=== PATIENT | male | born 1990 | race Caucasian/White ===

== ENCOUNTER 2019-03-02 22:59 | Inpatient (IN) | payer MEDICAID ==
[~2019-03-02] VITALS: Ht 165.1 cm; Wt 57.2 kg
[2019-03-02] MEDS ORDERED: DECADRON0.5 MG PO (23:09)
[2019-03-02] MEDS ORDERED: SYNTHROID175 MCG PO (23:10)
[2019-03-02 23:56] LABS: ANION GAP 14.6 mmol/L (8-16); CALCIUM 9.5 mg/dL (8.5-10.1); CARBON DIOXIDE 26.2 mmol/L (21.0-32.0); CREATININE - SERUM 1.4 mg/dL (0.6-1.3); POTASSIUM - SERUM 4.8 mmol/L (3.5-5.1)
[2019-03-03 00:01] LABS: ALBUMIN 4.4 g/dL (3.4-5.0); BILIRUBIN - TOTAL 0.31 mg/dL (0.2-1.3); PROTEIN - SERUM 8.3 g/dL (6.4-8.2)
[2019-03-03 00:17] LABS: BASOPHILS 0.5 % (0-2); EOSINOPHILS 1.9 % (0-7); HEMATOCRIT 42.7 % (42.0-54.0); HEMOGLOBIN 15.4 g/dL (13.5-17.5); IMMATURE GRANULOCYTES 0.2 % (0-5); LYMPHOCYTES 19.8 % (15-50); MCH 30.6 pg (26.0-34.0); MCHC 36.1 g/dL (31.0-37.0); MCV 84.9 fL (80.0-100.0); MEAN PLATELET VOLUME 11.4 fL (7.4-10.4); MONOCYTES 6.7 % (2-11); NEUTROPHILS 70.9 % (40-80); PLATELET COUNT 306 10x3/uL (130-400); RBC 5.03 10x6/uL (4.20-6.10); RDW 11.9 % (11.5-14.5); WBC 10.9 10x3/uL (4.8-10.8)
--- NOTE | 2019-03-03 00:47 | NUR ---
PT GIVEN WATER TO DRINK, DENIES ANY FURTHER NEEDS AT THIS TIME. WILL CONTINUE TO MONITOR.
--- NOTE | 2019-03-03 01:12 | NUR ---
PT GIVEN WARM BLANKETS AND HEAD OF BED ADJUSTED FOR COMFORT, DENIES ANY FURTHER NEEDS AT THIS TIME. CALL LIGHT WITHIN REACH. WILL CONTINUE TO MONITOR.
--- NOTE | 2019-03-03 02:20 | NUR ---
RECEIVED PT FROM ER VIA W/C. PT DROWSY, LETHARGIC AND WEAK. ACCOMPANIED BY MOTHER AND FIANCE. MOTHER ANSWERED QUESTIONS. RESP SHALLOW, NONLABORED. BBS CTA. ABD SOFT, NONTENDER. BS HYPERACTIVE X4 QUADS. NS @ 100 MLHR INFUSING IN RT AC WITHOUT DIFF. NO TELEMETRY AVAILABLE AT THIS TIME. ENCOURAGED USE OF URINAL. SR ELEVATED X3. CL IN REACH. V/S STABLE.
[2019-03-03] MEDS ORDERED: FLORINEF 0.1 M0.1 MG PO (02:32)
[2019-03-03 02:53] VITALS: BP 91/59; BMI 21.0
[2019-03-03 04:00] VITALS: BP 83/42
[2019-03-03 08:46] VITALS: BP 123/60
[2019-03-03 09:31] LABS: BASOPHILS 0.2 % (0-2); EOSINOPHILS 0.2 % (0-7); HEMOGLOBIN 13.5 g/dL (13.5-17.5); IMMATURE GRANULOCYTES 0.2 % (0-5); LYMPHOCYTES 20.3 % (15-50); MCH 30.7 pg (26.0-34.0); MCHC 35.5 g/dL (31.0-37.0); MCV 86.4 fL (80.0-100.0); MEAN PLATELET VOLUME 10.4 fL (7.4-10.4); MONOCYTES 2.2 % (2-11); NEUTROPHILS 76.9 % (40-80); PLATELET COUNT 322 10x3/uL (130-400); RDW 11.8 % (11.5-14.5)
[2019-03-03 10:14] LABS: MAGNESIUM - SERUM 1.5 mg/dL (1.8-2.4); PHOSPHOROUS 5.1 mg/dL (2.5-4.9)
--- NOTE | 2019-03-03 11:45 | NUR ---
PT WAS BLADDER SCAN AT THIS TIME WITH RESULTS OF 286 ML NOTED. REC'D ORDERS FOR TO PLACE A VERAS CATH IS GREATER THAN 150 ML. PT IS REFUSING VERAS CATH. CALL WAS PLACED TO PSYCHOLOGY LECTURER. C/L IN REACH AT BEDSIDE.
[2019-03-03 12:38] VITALS: BP 101/59
[2019-03-03 12:51] VITALS: Ht 165.1 cm; Wt 57.2 kg
[2019-03-03 13:03] LABS: APPEARANCE CLEAR (CLEAR); BILIRUBIN NEGATIVE (NEGATIVE); COLOR YELLOW (YELLOW); GLUCOSE 250 mg/dL (NEGATIVE); KETONE LARGE mg/dL (NEGATIVE); NITRITE NEGATIVE (NEGATIVE); PROTEIN NEGATIVE (NEGATIVE); UROBILINOGEN NORMAL (NORMAL)
[2019-03-03 13:11] LABS: UDS - AMPHET NEGATIVE QUAL (NEGATIVE); UDS - BARB POSITIVE QUAL (NEGATIVE); UDS - BENZO NEGATIVE QUAL (NEGATIVE); UDS - COCAINE NEGATIVE QUAL (NEGATIVE); UDS - OPIATE NEGATIVE QUAL (NEGATIVE); UDS - PCP NEGATIVE QUAL (NEGATIVE); UDS - THC NEGATIVE QUAL (NEGATIVE)
[2019-03-03 16:49] LABS: CALC OSMOLALITY 266 mosm/kg (275-300); CALCIUM 8.4 mg/dL (8.5-10.1); CARBON DIOXIDE 20.4 mmol/L (21.0-32.0); CHLORIDE - SERUM 100 mmol/L (98-107); CREATININE - SERUM 1.1 mg/dL (0.6-1.3); GLUCOSE 174 mg/dL (74-106); SODIUM 131 mmol/L (136-145); UREA NITROGEN 13 mg/dL (7-18); eGFR NON AFRICAN AMERICAN 86 mL/min (90-120)
--- NOTE | 2019-03-03 19:30 | NUR ---
SITTING UP IN BED TALKING TO FAMILY AND FIANCE. ALERT AND ORIENTED X4. LAUGHING. STATES HES FEELING BETTER. NO N/V. RESP EVEN AND NONLABORED. DENIES PAIN. AMBULATORY. NS @ 100 MLHR INFUSING IN RT AC WITHOUT DIFF. NO DISTRESS. CL IN REACH.
[2019-03-03 20:00] VITALS: BP 97/47
--- NOTE | 2019-03-03 21:00 | NUR ---
PTS MOTHER STATES PT SAT UP ON SIDE OF BED AND SAW "BLACK SPOTS". B/P IS SLIGHTLY LOW. ENCOURAGED TO RISE SLOWLY FROM LYING AND SITTING POSITION. B/P IS 90/60 AT THIS TIME. MOTHER STATES HES BEEN HAVING THESE EPISODES. NO DISTRESS. PT LAUGHING AND TALKING. CL IN REACH.
[2019-03-04] VITALS: BP 110/50
[2019-03-04 04:00] VITALS: BP 91/49
--- NOTE | 2019-03-04 07:15 | NUR ---
ALERT AND ORIENTED. LUNGS CLEAR BILTERALLY. HEART SOUNDS S1 AND S2 HEARD IN ALL SHER. BOWEL SOUNDS ACTIVE X 4. SKIN INTACT WITHOUT REDNESS. IV TO RIGHT AC PATENT WITHOUT REDNESS. DENIES PAIN. DENIES NEEDS. FIANCE AT BEDSIDE. BED LOW. CALL BESS AND PERSONAL ITEMS IN REACH. WILL CONTINUE TO MONITOR.
[2019-03-04 07:34] LABS: HEMATOCRIT 33.6 % (42.0-54.0); HEMOGLOBIN 12.4 g/dL (13.5-17.5); LYMPHOCYTES 15.8 % (15-50); MCH 32.2 pg (26.0-34.0); MCHC 36.9 g/dL (31.0-37.0); MCV 87.3 fL (80.0-100.0); MEAN PLATELET VOLUME 11.2 fL (7.4-10.4); NEUTROPHILS 77.6 % (40-80); PLATELET COUNT 227 10x3/uL (130-400); RBC 3.85 10x6/uL (4.20-6.10); RDW 12.4 % (11.5-14.5)
[2019-03-04 07:43] LABS: ALBUMIN 3.4 g/dL (3.4-5.0); ALKALINE PHOSPHATASE 43 U/L (46-116); CALCIUM 8.5 mg/dL (8.5-10.1); CARBON DIOXIDE 23.3 mmol/L (21.0-32.0); CHLORIDE - SERUM 101 mmol/L (98-107); PROTEIN - SERUM 6.8 g/dL (6.4-8.2); SODIUM 135 mmol/L (136-145); UREA NITROGEN 10 mg/dL (7-18); eGFR NON AFRICAN AMERICAN > 90 mL/min (90-120)
[2019-03-04 07:45] LABS: ALT (SGPT) 22 U/L (10-68); CALC OSMOLALITY 269 mosm/kg (275-300); GLUCOSE 124 mg/dL (74-106); MAGNESIUM - SERUM 1.9 mg/dL (1.8-2.4); PHOSPHOROUS 3.1 mg/dL (2.5-4.9); POTASSIUM - SERUM 4.2 mmol/L (3.5-5.1)
[2019-03-04 08:30] VITALS: BP 99/51
--- NOTE | 2019-03-04 10:28 | NUR ---
RESTING IN BED. DENIES NEEDS. WILL CONTINUE TO MONITOR.
--- NOTE | 2019-03-04 12:20 | NUR ---
REQUESTED AND GIVEN APPLE JUICE. DENIES NEEDS. MOM AND FIANCE AT BEDSIDE. WILL CONTINUE TO MONITOR.
[2019-03-04 12:53] VITALS: BP 102/61
--- NOTE | 2019-03-04 15:09 | MORECARE ---
CASE MANAGEMENT DISCHARGE SUMMARY PATIENT: DESMOND COTTON UNIT: [id number] ADM DATE: 03/03/19 AGE: 28 : 92 SEX: M ROOM/BED: D.2213 AUTHOR: CANDELARIO PRETTY PHYSICIAN: REFERRING PHYSICIAN: CAROL ST MD DATE OF SERVICE: 03/04/19 Discharge Plan Patient Name: DESMOND COTTON Facility: [facility]:[place] : 1990 Planned Disposition: Home Anticipated Discharge Date: Discharge Date: Expected LOS: Initial Reviewer: [email or web address] Initial Review Date: 03/04/2019 Generated: 03/04/19 4:09 pm Comments DCP- Discharge Planning Updated by [email or web address]: Mita Florence on 03/04/19 2:[address] Patient Name: DESMOND COTTON Admission Status: ER Accout number: [id number] Admission Date: 03-03-2019 : 1990 Admission Diagnosis: Attending: CAROL YARBROUGH Current LOS: 1 Anticipated DC Date: Planned Disposition: Home Primary Insurance: MEDICAID [place] Discharge Planning Comments: CM MET WITH PATIENT TO DISCUSS DC PLANNING/NEEDS AFTER OBTAINING VERBAL CONSENT. PLANS TO DC TO HOME, HOPEFULLY TOMORROW. DENIES NEEDS FOR EQUIPMENT, HOME HEALTH OR REHAB. CM TO FOLLOW AND ASSIST NEEDED. Computer Engineering Technologist: Mita Florence DCPIA - Discharge Planning Initial Assessment Updated by [email or web address]: Mita Florence on 03/04/19 3:08 pm * Is the patient Alert and Oriented? Yes * PCP LUIS M * Pharmacy [facility] * Preadmission Environment Home with Family * ADLs Independent * Additional services required to return to the preadmission environment? No * Can the patient safely return to the preadmission environment? Yes * Has this patient been hospitalized within the prior 30 days at any hospital? No Patient Name: DESMOND COTTON Page [id number] at 1509 All edits/amendments must be made on the electronic document DICTATION DATE: 03/04/19 1508 PRICE ACCURACY SUPERVISOR: OMARI 03/04/19 150 RPT#: [id number] [place] DATE: STATUS: ADM IN [facility] [address] [place] [address] END OF REPORT
--- NOTE | 2019-03-04 15:56 | NUR ---
FLUIDS DC PER RENAL MD.
--- NOTE | 2019-03-04 16:33 | NUR ---
RESTING IN BED. DENIES NEEDS. WILL CONTINUE TO MONITOR.
--- NOTE | 2019-03-04 17:32 | NUR ---
PATIENT GRANDMA BROUGHT PATIENT FRIES, CHICKEN, AND KETCHUP. INFORMED PATIENT IS RENAL DIET. STATES "THE DOCTOR SAID HE COULD HAVE IT." EDUCATION PROVIDED. TAKEN TO PATIENT BY GRANDMA AND EATING ANYWAY.
--- NOTE | 2019-03-04 18:12 | NUR ---
EDUCATION PROVIDED TO PATIENT AND GRANDMA AT BEDSIDE ON RENAL DIET. BOTH VERBALIZED UNDERSTANDING. PATIENT REQUESTED AND GIVEN WARM BLANKET.
--- NOTE | 2019-03-04 18:33 | NUR ---
RESTING IN BED. DENIES NEEDS. GRANDMA AT BEDSIDE. BED LOW. CALL BESS AND PERSONAL ITEMS IN REACH.
--- NOTE | 2019-03-04 19:15 | NUR ---
BEDSIDE REPORT RECEIVED FROM A[facility]A. PATIENT IN ROOM. SEVERAL FAMILY MEMBERS IN ROOM. MOTHER ASKING ABOUT LOW SODIUM/RENAL DIET. PROVIDED EDUCATION. PATIENT DENIES NEEDS AT THIS TIME. CALL LIGHT IN REACH. CPOC.
[2019-03-04 20:00] VITALS: BP 114/51
--- NOTE | 2019-03-04 20:26 | NUR ---
ADMINISTERED MEDICATION TO RIGHT AC ORDERED. PATIENT DENIES PAIN OR DISCOMFORT. LUNGS CLEAR BILATERALLY TO AUSCULTATION. PATIENT REPORTS NO NEW WEAKNESS OR STOMACH DISCOMFORT. BOWEL SOUNDS ACTIVE. FAMILY REMAINS AT BEDSIDE. CALL LIGHT IN REACH. CPOC.
[2019-03-05] VITALS: BP 130/61
--- NOTE | 2019-03-05 03:49 | NUR ---
I have reviewed this patient and I concur with the Shift Assessment completed by the Licensed Practical Nurse today this shift.
[2019-03-05 04:00] VITALS: BP 102/45
--- NOTE | 2019-03-05 07:30 | NUR ---
PATIENT REPORT RECIEVED. PATIENT SITTING UP IN BED WITH IV INTACT. NO COMPLAINTS OR SIGNS OF DISTRESS. CALL LIGHT WITHIN REACH.
[2019-03-05 07:59] LABS: BASOPHILS 0.1 % (0-2); EOSINOPHILS 0.1 % (0-7); HEMATOCRIT 34.2 % (42.0-54.0); HEMOGLOBIN 11.6 g/dL (13.5-17.5); IMMATURE GRANULOCYTES 0.2 % (0-5); LYMPHOCYTES 18.4 % (15-50); MCH 30.4 pg (26.0-34.0); MCHC 33.9 g/dL (31.0-37.0); MEAN PLATELET VOLUME 11.3 fL (7.4-10.4); MONOCYTES 8.2 % (2-11); PLATELET COUNT 249 10x3/uL (130-400); RBC 3.82 10x6/uL (4.20-6.10); RDW 12.6 % (11.5-14.5); WBC 8.4 10x3/uL (4.8-10.8)
[2019-03-05 08:06] LABS: MCV 89.5 fL (80.0-100.0)
[2019-03-05 08:19] VITALS: BP 124/77
[2019-03-05 08:27] LABS: ALBUMIN 3.1 g/dL (3.4-5.0); ALKALINE PHOSPHATASE 44 U/L (46-116); ALT (SGPT) 22 U/L (10-68); BILIRUBIN - TOTAL 0.18 mg/dL (0.2-1.3); CALC OSMOLALITY 271 mosm/kg (275-300); CALCIUM 8.2 mg/dL (8.5-10.1); CARBON DIOXIDE 25.4 mmol/L (21.0-32.0); CHLORIDE - SERUM 102 mmol/L (98-107); CREATININE - SERUM 0.9 mg/dL (0.6-1.3); GLUCOSE 124 mg/dL (74-106); POTASSIUM - SERUM 3.8 mmol/L (3.5-5.1); PROTEIN - SERUM 6.5 g/dL (6.4-8.2); SODIUM 136 mmol/L (136-145); UREA NITROGEN 11 mg/dL (7-18); eGFR NON AFRICAN AMERICAN > 90 mL/min (90-120)
--- NOTE | 2019-03-05 08:30 | NUR ---
PATIENT UP IN CHAIR WITH IV INTACT. NO COMPLAINTS OR SIGNS OF DISTRESS. FAMILY AT BEDSIDE. CALL LIGHT WITHIN REACH.
--- NOTE | 2019-03-05 11:00 | NUR ---
PATIENT UP AMBULATING IN HALLWAYS WITH IV INTACT.
[2019-03-05] MEDS ORDERED: SYNTHROID50 MCG PO (12:05)
[2019-03-05] MEDS ORDERED: DECADRON0.5 MG PO (12:07)
--- NOTE | 2019-03-05 13:30 | NUR ---
PATIENT RECIEVED DISCHARGE INSTRUCTIONS. NO QUESTIONS AT THIS TIME. IV REMOVED WITH CATH TIP INTACT. EXPLAINED TO FUR MACHINE OPERATOR MEDS FROM PHARMACY. VERBALIZED UNDERSTANDING. AMBULATED WITH FAMILY TO PRIVATE VEHICLE WITH PERSONAL BELONGINGS. REFUSED WC AT THIS TIME.
--- NOTE | 2019-03-05 15:27 | MORECARE ---
CASE MANAGEMENT DISCHARGE SUMMARY PATIENT: DESMOND COTTON UNIT: [id number] ADM DATE: 03/03/19 AGE: 28 : 92 SEX: M ROOM/BED: D.2213 AUTHOR: CANDELARIO PRETTY PHYSICIAN: REFERRING PHYSICIAN: CAROL ST MD DATE OF SERVICE: 03/05/19 Discharge Plan Patient Name: DESMOND COTTON Facility: [facility]:[place] : 1990 Planned Disposition: Home Anticipated Discharge Date: Discharge Date: 03/05/2019 Expected LOS: Initial Reviewer: [email or web address] Initial Review Date: 03/04/2019 Generated: 03/05/19 4:26 pm Comments DCP- Discharge Planning Updated by [email or web address]: Mita Florence on 03/04/19 2:[address] Patient Name: DESMOND COTTON Admission Status: ER Accout number: [id number] Admission Date: 03-03-2019 : 1990 Admission Diagnosis: Attending: CAROL YARBROUGH Current LOS: 1 Anticipated DC Date: Planned Disposition: Home Primary Insurance: MEDICAID [place] Discharge Planning Comments: CM MET WITH PATIENT TO DISCUSS DC PLANNING/NEEDS AFTER OBTAINING VERBAL CONSENT. PLANS TO DC TO HOME, HOPEFULLY TOMORROW. DENIES NEEDS FOR EQUIPMENT, HOME HEALTH OR REHAB. CM TO FOLLOW AND ASSIST NEEDED. Sofa Inspector: Mita Florence DCPIA - Discharge Planning Initial Assessment Updated by [email or web address]: Mita Florence on 03/04/19 3:08 pm * Is the patient Alert and Oriented? Yes * PCP LUIS M * Pharmacy [facility] * Preadmission Environment Home with Family * ADLs Independent * Additional services required to return to the preadmission environment? No * Can the patient safely return to the preadmission environment? Yes * Has this patient been hospitalized within the prior 30 days at any hospital? No Last DP export: 03/04/19 2:09 Patient Name: DESMOND COTTON Page [id number] at 4257 All edits/amendments must be made on the electronic document DICTATION DATE: 03/05/19 1526 TANNING SOLUTION MAKER: OMARI 03/05/19 1526 RPT#: [id number] DC DATE:03/05/19 STATUS: DIS IN [facility] [address] [place] [address] END OF REPORT
== END 2019-03-05 13:30 | disposition home or self-care (01) | DRG 643 ==
LOC: D.ER 22:59 → D.MS 03-03 01:50
PROVIDERS: Family Medicine; Internal Medicine; ADMIT Family Medicine Adult Medicine; ATTEND Family Medicine Adult Medicine
DX: E27.2 Addisonian crisis (principal); E43 Unspecified severe protein-calorie malnutrition; N17.9 Acute kidney failure, unspecified; E87.1 Hypo-osmolality and hyponatremia; G72.89 Other specified myopathies; Z87.820 Personal history of traumatic brain injury; E03.9 Hypothyroidism, unspecified; F32.9 Major depressive disorder, single episode, unspecified; R11.2 Nausea with vomiting, unspecified; R63.4 Abnormal weight loss; Z68.21 Body mass index [BMI] 21.0-21.9, adult; E86.0 Dehydration

== ENCOUNTER 2019-08-03 16:05 | Emergency (ER) | payer MEDICAID ==
[~2019-08-03] VITALS: Ht 165.1 cm; Wt 59.1 kg
[~2019-08-03 16:05] MED LIST: DECADRON0.5 MG PO; FLORINEF 0.1 M0.1 MG PO; SYNTHROID175 MCG PO; SYNTHROID50 MCG PO
[2019-08-03 16:22] VITALS: Ht 165.1 cm; Wt 59.1 kg
[2019-08-03] MEDS ORDERED: ZOLOFT50 MG PO (16:24)
[2019-08-03] MEDS ORDERED: DECADRON0.5 MG PO (16:24)
[2019-08-03 16:34] LABS: BASOPHILS 0.2 % (0-2); EOSINOPHILS 0.3 % (0-7); HEMATOCRIT 38.5 % (42.0-54.0); HEMOGLOBIN 13.3 g/dL (13.5-17.5); IMMATURE GRANULOCYTES 0.5 % (0-5); LYMPHOCYTES 18.9 % (15-50); MCH 30.4 pg (26.0-34.0); MCHC 34.5 g/dL (31.0-37.0); MCV 88.1 fL (80.0-100.0); MEAN PLATELET VOLUME 9.7 fL (7.4-10.4); MONOCYTES 13.4 % (2-11); NEUTROPHILS 66.7 % (40-80); PLATELET COUNT 290 10x3/uL (130-400); RBC 4.37 10x6/uL (4.20-6.10); RDW 12.6 % (11.5-14.5); WBC 12.5 10x3/uL (4.8-10.8)
[2019-08-03 16:41] LABS: CALC OSMOLALITY 258 mosm/kg (275-300); CALCIUM 8.7 mg/dL (8.5-10.1); CARBON DIOXIDE 26.8 mmol/L (21.0-32.0); CHLORIDE - SERUM 92 mmol/L (98-107); CREATININE - SERUM 0.9 mg/dL (0.6-1.3); GLUCOSE 92 mg/dL (74-106); POTASSIUM - SERUM 3.9 mmol/L (3.5-5.1); SODIUM 129 mmol/L (136-145); UREA NITROGEN 12 mg/dL (7-18); eGFR NON AFRICAN AMERICAN > 90 mL/min (90-120)
[2019-08-03 16:48] LABS: ALBUMIN 4.2 g/dL (3.4-5.0); ALKALINE PHOSPHATASE 49 U/L (30-120); ALT (SGPT) 20 U/L (10-68); BILIRUBIN - TOTAL 0.43 mg/dL (0.2-1.3); MAGNESIUM - SERUM 1.5 mg/dL (1.8-2.4); PROTEIN - SERUM 7.6 g/dL (6.4-8.2)
[2019-08-03 17:23] LABS: NITRITE NEGATIVE (NEGATIVE); SPECIFIC GRAVITY 1.015 (1.005-1.020)
[2019-08-03 17:24] LABS: BILIRUBIN NEGATIVE (NEGATIVE); GLUCOSE NEGATIVE (NEGATIVE); KETONE NEGATIVE (NEGATIVE); UROBILINOGEN NORMAL (NORMAL)
[2019-08-03 17:30] LABS: UDS - AMPHET NEGATIVE QUAL (NEGATIVE); UDS - BARB NEGATIVE QUAL (NEGATIVE); UDS - BENZO NEGATIVE QUAL (NEGATIVE); UDS - COCAINE NEGATIVE QUAL (NEGATIVE); UDS - OPIATE NEGATIVE QUAL (NEGATIVE); UDS - PCP NEGATIVE QUAL (NEGATIVE); UDS - THC NEGATIVE QUAL (NEGATIVE)
[2019-08-03 18:00] VITALS: BP 123/64
== END 2019-08-03 19:03 | disposition home or self-care (01) ==
LOC: D.ER 16:05
PROVIDERS: Family Medicine
DX: T43.595A Adverse effect of other antipsychotics and neuroleptics, initial encounter (principal); S01.91XA Laceration without foreign body of unspecified part of head, initial encounter; W19.XXXA Unspecified fall, initial encounter; Y93.9 Activity, unspecified; Y92.9 Unspecified place or not applicable; R56.9 Unspecified convulsions; E07.9 Disorder of thyroid, unspecified

== ENCOUNTER 2020-01-14 16:53 | Emergency (ER) | payer SELFPAY ==
[~2020-01-14 16:53] MED LIST changes: +ZOLOFT50 MG PO
[2020-01-14 17:04] VITALS: Ht 165.1 cm
[2020-01-14 18:01] LABS: BASOPHILS 0.4 % (0-2); EOSINOPHILS 1.7 % (0-7); HEMOGLOBIN 14.6 g/dL (13.5-17.5); IMMATURE GRANULOCYTES 0.1 % (0-5); LYMPHOCYTES 15.4 % (15-50); MCH 30.8 pg (26.0-34.0); MCHC 35.6 g/dL (31.0-37.0); MCV 86.5 fL (80.0-100.0); MEAN PLATELET VOLUME 9.9 fL (7.4-10.4); MONOCYTES 3.9 % (2-11); NEUTROPHILS 78.5 % (40-80); PLATELET COUNT 344 10x3/uL (130-400); RBC 4.74 10x6/uL (4.20-6.10); WBC 7.1 10x3/uL (4.8-10.8)
[2020-01-14 18:11] LABS: ANION GAP 9.2 mmol/L (8-16); CALCIUM 9.6 mg/dL (8.5-10.1); CARBON DIOXIDE 27.1 mmol/L (21.0-32.0); CREATININE - SERUM 1.3 mg/dL (0.6-1.3); POTASSIUM - SERUM 4.3 mmol/L (3.5-5.1)
[2020-01-14 18:17] LABS: ALBUMIN 4.1 g/dL (3.4-5.0); BILIRUBIN - TOTAL 0.58 mg/dL (0.2-1.3); PROTEIN - SERUM 8.1 g/dL (6.4-8.2)
[2020-01-14] MEDS ORDERED: FLORINEF 0.1 M0.1 MG PO (19:06)
[2020-01-14] MEDS ORDERED: ZOLOFT50 MG PO (19:06)
[2020-01-14] MEDS ORDERED: DECADRON0.5 MG PO (19:06)
[2020-01-14] MEDS ORDERED: LEVOXYL50 MCG PO (19:06)
[2020-01-14 19:49] VITALS: BP 104/48
== END 2020-01-14 19:49 | disposition home or self-care (01) ==
LOC: D.ER 16:53
PROVIDERS: Family Medicine
DX: R53.1 Weakness (principal); D51.0 Vitamin B12 deficiency anemia due to intrinsic factor deficiency; Z91.14 Patient's other noncompliance with medication regimen